=== PATIENT | male | born 1940 | race Caucasian/White ===

== ENCOUNTER 2017-10-18 02:29 | Inpatient (IN) | payer MEDICARE, BC ==
[2017-10-17] MEDS: FLUTICASONE INH SCH (07:49)
[2017-10-17] MEDS: [UNRECOGNIZED DRUG - OTHER] INH SCH (07:49)
[2017-10-17 13:43] LABS: INR 1.01
[~2017-10-18] VITALS: Ht 180.3 cm; Wt 84.8 kg
[2017-10-18] VITALS (10 sets, daily range): BP systolic 122–141; BP diastolic 63–76
[~2017-10-18 02:29] MED LIST: ACE325 PO; ADV250/50 INH; ALFU10TA9 PO; ALL300 PO; BIS10S PR; ENO40I SQ; FINA5TAB64 PO; FISH OIL1 CAP PO; FLUT12HF2 IH; GLUC-198 PO; LISI20TA29 PO; LOR7.5/325 PO; LOSA25TA50 PO; MOM PO; NIA500 PO; OMEP-218 PO; OXY10 PO; SAW160CA24 PO; SENN1TAB9 PO; [UNRECOGNIZED DRUG - CODE] PO; prostate med
[2017-10-18] MEDS ORDERED: CLINDAMYCIN(*) 900 MG/NS 50 ML 50 ML IVPB ONE (07:30)
[2017-10-18] MEDS ORDERED: MIDAZOLAM 2 MG/2 ML VIAL IVP PRN (07:30)
[2017-10-18] MEDS ORDERED: ACETAMINOPHEN 500 MG TAB PO ONE (07:30)
[2017-10-18] MEDS ORDERED: PREGABALIN 75 MG CAPSULE PO ONE (07:30)
[2017-10-18] MEDS ORDERED: BACITRACIN 50000 UNIT/VIAL 100,000 UNIT in NS 0.9% 3000 ML IRRIGATION BAG 3,000 ML IR ONE (07:30)
[2017-10-18] MEDS ORDERED: LIDOCAINE/SOD BICARB 8.4% SYR ID ONE (07:30)
[2017-10-18] MEDS ORDERED: cloNIDine EPIDUR INJ 100MCG/ML 40 MCG, ROPIVACAINE 0.5% 20 ML VIAL 25 ML, EPINEPHrine H... INJ ONE (07:30)
[2017-10-18] MEDS ORDERED: TRANEXAMIC AC 1000 MG/10ML SDV 1,000 MG in DEXTROSE 5% 50 ML BAG 50 ML IV ONE (07:30)
[2017-10-18] MEDS ORDERED: NORMOSOL R SOLN(*) 1000 ML BAG 1,000 ML IV PRN ×2 (07:30→15:10)
--- NOTE | 2017-10-18 07:37 | LEVENE H&P ---
DATE OF ADMISSION: October 18, 2017 IDENTIFICATION/CHIEF COMPLAINT The patient is a 76-year-old gentleman with a chief complaint of right knee pain. HISTORY OF PRESENT ILLNESS The patient has a longstanding history of knee arthritis, progressively painful and debilitating, refractory to conservative care. Surgery is indicated to relieve symptoms after failure of nonoperative measures. PAST MEDICAL HISTORY 1. Notable for hypertension. 2. Asthma. 3. Gout. PAST SURGICAL HISTORY 1. Notable for contralateral knee replacement. 2. Shoulder surgery. 3. Colonoscopy. 4. Foot operation. ALLERGIES SULFA PENICILLIN both which cause hives. CURRENT MEDICATIONS 1. Allopurinol 200 mg p.o. q day. 2. Advair inhaler 2 puffs b.i.d. 3. Lisinopril 20 mg p.o. q day. 4. Prazosin 10 mg q day. 5. Prilosec p.r.n. FAMILY HISTORY Non-contributory. SOCIAL HISTORY Negative for tobacco and alcohol use. REVIEW OF SYSTEMS Notable for borderline diabetes, diet managed. PHYSICAL EXAMINATION GENERAL: This is a well-developed, well-nourished male who appears stated age. HEENT: Normocephalic, atraumatic. Extraocular muscles intact. NECK: Supple, non-tender. LUNGS: Clear to auscultation bilaterally. HEART: Regular rate and rhythm. ABDOMEN: Soft. ORTHOPEDIC EXAMINATION The right knee has an effusion. He has varus deformity. He is stiff in end- range. Gross stability is good. Extensor function is intact. Calves nontender. Neurovascular function intact. RADIOGRAPHS Demonstrate end-stage knee arthritis. ASSESSMENT Right knee end-stage degenerative joint disease, progressively painful and debilitating, refractory to conservative care. PLAN Per patient request, we are going to proceed with total knee arthroplasty. The nature of the procedure, the risks, benefits, the anticipated rehabilitative course were reviewed. Risks include but are not limited to , major medical or anesthetic complication, infection, neurovascular injury, stiffness, scarring, fracture, tendon rupture, instability, implant loosening, migration or failure, blood transfusion, re-tear, progressive arthritis, persistent or recurrent pain or symptoms, need for additional surgery and other unforeseen. He understands and wishes to proceed. A signed permit is placed in the chart. No guarantees are given or implied. TERESA
[2017-10-18] MEDS ORDERED: PROPOFOL EMUL(*) 10MG/ML 20 ML 20 ML ONE (10:29)
[2017-10-18] MEDS ORDERED: DEXAMETHASONE SOD 4 MG/ML VIAL ONE (10:29)
[2017-10-18] MEDS ORDERED: ONDANSETRON 4 MG/2 ML VIAL ONE (10:29)
[2017-10-18] MEDS ORDERED: fentaNYL CITR 100 MCG/2 ML AMP ONE (10:29)
[2017-10-18] MEDS ORDERED: LIDOCAINE MPF 1% 5 ML VIAL ONE (10:29)
[2017-10-18] MEDS ORDERED: KETAMINE HCL 500 MG/10 ML VIAL ONE (10:33)
[2017-10-18] MEDS ORDERED: MIDAZOLAM 2 MG/2 ML VIAL ONE (10:34)
[2017-10-18] MEDS ORDERED: LACTATED RINGER 3000 ML BAG IR ONE (14:04)
[2017-10-18] MEDS ORDERED: NS 0.9% IRRIGATION 1000ML PLCT IR ONE (14:05)
[2017-10-18] MEDS ORDERED: diphenhydrAMINE 50 MG/ML VIAL IVP PRN (15:10)
[2017-10-18] MEDS ORDERED: ACETAMINOPHEN 325 MG TAB PO PRN (15:10)
[2017-10-18] MEDS ORDERED: FLUSH 10 ML SYR IVP PRN (15:10)
[2017-10-18] MEDS ORDERED: PROMETHAZINE 25 MG/ML 1 ML AMP IVP PRN (15:10)
[2017-10-18] MEDS ORDERED: diphenhydrAMINE 25 MG CAP PO PRN (15:10)
[2017-10-18] MEDS ORDERED: BENZOCAINE/MENTHOL 1 EACH LOZG PO PRN (15:10)
[2017-10-18] MEDS ORDERED: DIAZEPAM 5 MG TAB PO PRN (15:10)
[2017-10-18] MEDS ORDERED: BISACODYL 10 MG SUPP PR PRN (15:10)
[2017-10-18] MEDS ORDERED: ZOLPIDEM TARTRATE 5 MG TAB PO PRN (15:10)
--- NOTE | 2017-10-18 15:15 | RADIOLOGY IMAGING REPORT ---
FACILITY: [facility] [place] PATIENT NAME: Tl Mart : 1940 MR: [id number] V: [id number] EXAM DATE: ORDERING PHYSICIAN: JOSÉ MANUEL MCQUEEN TECHNOLOGIST: Location: [facility] [place] Patient: Tl Mart : 1940 Visit/Account:[id number] Date of Sevice: 10/18/2017 KNEE LIMITED RIGHT Indication: Postop Comparison: 10/13/2010 Findings: There are posterior changes from three part TKA. Components are well seated and in good alignment. No abnormalities are noted. IMPRESSION: 1. Normal appearance of postoperative right TKA Report Dictated By: Alonso Barth at 10/18/2017 3:10 PM Report E-Signed By: Alonso Barth at 10/18/2017 3:11 PM WSN:[id number]
--- NOTE | 2017-10-18 18:04 | Hospitalist Consultation ---
History of Present Illness Requesting Physician Dr. Ding Reason for Consult Hypertension History of Present Illness This patient was admitted for knee replacement surgery. It is reported that the surgery went well and was without complication. History Problems: (1) Essential hypertension (2) History of DVT (deep vein thrombosis) (3) Asthma Home Meds Reported Medications Losartan Potassium (LOSARTAN POTASSIUM) 25 Mg Tablet, 25 MG PO QDAY 10/11/17 Sennosides/Docusate Sodium (SENNA LAXATIVE TABLET) 1 Each Tablet, 1 EACH PO PRN 10/11/17 Fluticasone/Salmeterol (ADVAIR HFA 115-21 MCG INHALER) 12 Gm Hfa.aer.ad, 2 PUFF IH BID 10/11/17 Alfuzosin Hcl (ALFUZOSIN HCL) 10 Mg Tab.er.24h, 10 MG PO QDAY 10/11/17 Acetaminophen (Tylenol) 325 Mg Tab, 325 MG PO Q4H PRN, 0 Refills DO NOT TAKE IF USING LORTAB 10/16/10 [prostate med] No Conflict Check, 0 Refills 10/07/10 Omeprazole Magnesium (Prilosec Otc) 20 Mg Tablet.dr, 20 MG PO PRN, 0 Refills 10/07/10 [place]-3 Fatty Acids (Fish Oil) 1 Cap Capsule, 1 CAP PO DAILY, 0 Refills 10/07/10 Glucosa [place] 2KCL/Chondroitin [place] (Glucosamine & Chondroitin Cap) 1 Cap Capsule, 1 CAP PO DAILY, 0 Refills 10/07/10 Allopurinol (Zyloprim) 300 Mg Tab, 300 MG PO QDAY, 0 Refills 10/07/10 Discontinued Reported Medications Lisinopril (LISINOPRIL) 20 Mg Tablet, 20 MG PO QDAY, TAB 10/11/17 Finasteride (Proscar) 5 Mg Tablet, 5 MG PO AB, 0 Refills 10/16/10 Bisacodyl (Dulcolax) 10 Mg Supp, 10 MG AR PRN, 0 Refills INSERT 10/16/10 Oxycodone Hcl (Oxycontin) 10 Mg Tabcr, 10 MG PO Q12H, #20 0 Refills 10/16/10 Enoxaparin Sodium (Lovenox) 40 Mg/0.4 Ml Syr, 40 MG SQ QDAY, #14 0 Refills 10/16/10 Acetaminophen/Hydrocodone (Lortab 7.5/325 Mg) 7.5 Mg/325 Mg Tab, 1 - 2 TAB PO Q4-6H PRN, #40 1 Refill 10/16/10 Al Hydroxide/Mg Hydroxide (Milk Of Magnesia) 30 Ml Susp, 30 ML PO Q8H PRN, 0 Refills 10/16/10 Flaxseed (Flax Seed Oil) 1,000 Mg Capsule, 1000 MG PO DAILY, 0 Refills 10/07/10 [place] (Saw [place]) 160 Mg Capsule, 160 MG PO DAILY, 0 Refills 10/07/10 Niacin (Niaspan) 500 Mg Tab, 500 MG PO QHS, 0 Refills 10/07/10 Salmeterol Xinaf/Fluticasone (Advair 250/50 Diskus) 250 Mcg/50 Mcg Inh, 2 PUFF INH BID, 0 Refills 1 PUFF 10/07/10 Allergies: Coded Allergies: Penicillins (Verified Allergy, Intermediate, HIVES, 10/07/10) Sulfa (Sulfonamide Antibiotics) (Verified Allergy, Intermediate, HIVES, 10/07/10) Hx Smoking: No Exposure to Second Hand Smoke?: No Caffeine Intake: Coffee Caffeine/Cups Per Day: SOMETIMES Hx Alcohol Use: No Hx Substance Use Disorder: No History of IV Drug Use: No Review of Systems All Systems Reviewed/Normal: Yes Exam Vital Signs Vital Signs Date Time Temp Pulse Resp B/P (MAP) Pulse Ox O2 Delivery O2 Flow Rate FiO2 10/18/17 17:16 95 Nasal Cannula 2.0 10/18/17 17:15 53 124/71 (88) 10/18/17 16:20 97.6 20 Neuro: No Gross deficits Eyes: PERRLA Cardiovascular: Regular Rate and Rhythm Respiratory: Clear to Auscultation GI: Abd Soft and Non-Tender Extremities: No Edema Integumentary: No Cyanosis Assessment and Plan Problems: (1) S/P knee replacement Assessment & Plan: He is on Xarelto prophylaxis. (2) Essential hypertension Assessment & Plan: He is on chronic treatment with losartan, which has been ordered with hold parameters. (3) Asthma Assessment & Plan: He is on chronic treatment with Advair. Venous Thromboembolism Antithrombotics Is Pt On Any Antithrombotics?: Yes Exam Sepsis Risk: No Definite Risk CHRISTOPHER STALEY DO Oct 18, 2017 18:04
[2017-10-18] MEDS: CLINDAMYCIN(*) 900 MG/NS 50 ML 50 ML IVPB SCH (21:08)
[2017-10-18] MEDS: IBUPROFEN 800 MG TAB PO SCH (21:08)
--- NOTE | 2017-10-18 21:12 | OPERATIVE REPORT 1 ---
EVENT DATE: October 18, 2017 SURGEON: Omar Ding MD ANESTHESIOLOGIST: Curtis Jackson MD ANESTHESIA: General plus spinal. CONTINUOUS MINING OPERATOR: TRAN Iglesisa PREOPERATIVE DIAGNOSIS Right knee degenerative joint disease. POSTOPERATIVE DIAGNOSIS Right knee degenerative joint disease. PROCEDURE PERFORMED Right total knee arthroplasty. FINAL ESTIMATED BLOOD LOSS Minimal. DRAINS None. SPECIMENS None. COMPLICATIONS None apparent. TOURNIQUET TIME 46 minutes IMPLANTS USED phorus Triathlon knee system with 5 right PS femur, 6 standard tibial baseplate, a 36 mm universal, cemented, all-polyethylene patellar button, and a 13 mm PS tibial tray liner. Polyethylene is X3. INDICATIONS Tl is a 77-year-old gentleman with intractable pain and disability related to end-stage knee arthritis. Surgery is indicated to relieve symptoms after failure of nonoperative measures. DESCRIPTION OF PROCEDURE Patient is taken to the operating room and placed supine on the operating table. Spinal block is administered by the anesthesiologist. General anesthesia is induced. Antibiotics are administered IV. The right lower extremity is prepped and draped in the usual sterile fashion for knee arthroplasty. Limb was exsanguinated with an Esmarch bandage. Tourniquet is inflated to 250 mmHg. A midline longitudinal incision is made and carried down through the skin and subcutaneous tissue to the deep fascia. Full-thickness flaps are developed far enough medially to allow medial parapatellar arthrotomy be performed. Patella is everted. Knee is brought into the flexed position. Fat pad, anterior horns of the menisci, and the cruciate ligaments are debrided. A subperiosteal medial released is begun in a gentle titrated fashion to start to balance the knee. A step drill is used to enter the distal femur. A 10-inch long alignment guide is used to engage the isthmus. Cut is set for 5 degrees of valgus relative to the anatomic axis. The 10 mm resection block is applied, pinned, and cuts made with an oscillating saw. AP sizing guide is applied to the distal femoral cut. Size 5 is optimal without risk of notching. Four-in-one cutting block is applied. Anterior, posterior, posterior chamfer, and anterior chamfer cuts are made respectively. PS block is applied and centered. Medial and lateral bone is removed through the box. Trial femur has nice [id number] fit. Attention is turned to tibial preparation. The extramedullary guide is applied, positioned for varus, valgus, posterior slope, and rotation. This is set to resect 9 mm from the relatively intact lateral tibial plateau. It is dropped down a couple millimeters ensure an adequate cut. Block is pinned. Extramedullary alignment check is made and cuts made with an oscillating saw. Peripheral osteophytes are removed, and posterior condylar bone is removed. Gaps are balanced and symmetric at this point with no additional releases required. The size 6 tibial baseplate provides optimum bony coverage without soft tissue overhang. This is inserted along with a trial femur and a trial liner. Knee is brought to extension. Patella is taken from a starting thickness of 24 mm to a residual of 15 with a patellar clamp and oscillating saw. The 36 provides optimum bony coverage without soft tissue overhang. Lug holes are drilled. Patella tracks nicely with the no-touch technique. Final tibial preparation consists of assuring appropriate rotational and translational positioning of the component. The boss is reamed, and the fin is punched. Surfaces are lavaged. Mixed methacrylate is made, and the components are cemented in a single stage. Once the cement is fully polymerized, tourniquet is deflated, and hemostasis is assured. The wound is copiously lavaged to remove all loose debris. The 13 PS tibial tray liner fills up the gap ideally, allowing the knee to drop to full extension without hyperextension and providing optimal soft tissue tension and stability. The tray is lavaged and dried. The actual liner is locked into the baseplate. Joint is reduced. Arthrotomy is closed in flexion with #2 Ethibond, subcutaneous tissue with 3-0 Vicryl, skin with surgical salvador. Xeroform and 4 x 4's applied as a dry, sterile dressing and compression wrap. The patient was awakened from anesthesia and taken to the recovery room in stable condition having tolerated the procedure well. PLAN Plan is for standard TKA rehab protocol. [facility]
[2017-10-18] MEDS: APAP/HYDROCODONE 325/7.5 TAB PO PRN (23:14)
[2017-10-19] VITALS: BP 112/55
[2017-10-19 03:24] VITALS: BP 112/57
[2017-10-19] MEDS: CLINDAMYCIN(*) 900 MG/NS 50 ML 50 ML IVPB SCH ×2 (05:19→13:20)
[2017-10-19 07:33] VITALS: BP 118/63
[2017-10-19 08:56] VITALS: Ht 180.3 cm; Wt 84.8 kg
[2017-10-19] MEDS: ALFUZOSIN HCL 10 MG TABCR PO SCH (08:59)
[2017-10-19] MEDS: IBUPROFEN 800 MG TAB PO SCH ×3 (08:59→21:08)
[2017-10-19] MEDS: RIVAROXABAN 10 MG TAB PO SCH (08:59)
[2017-10-19] MEDS: ALLOPURINOL 300 MG TAB PO SCH (08:59)
[2017-10-19] MEDS: APAP/HYDROCODONE 325/7.5 TAB PO PRN ×2 (08:59→16:48)
[2017-10-19] MEDS: LOSARTAN POTASSIUM 50 MG TAB PO SCH (09:00)
[2017-10-19] MEDS ORDERED: ASPIRIN 325 MG TAB PO SCH (09:00)
--- NOTE | 2017-10-19 10:53 | Hospitalist Progress Note ---
Subjective Progress Notes Subjective He has no complaints this morning. He had no acute events overnight. Patient Complains of: Cardiovascular: No: Chest Pain Respiratory: No: Shortness of Breath Physical Exam Vital Signs Date Time Temp Pulse Resp B/P (MAP) Pulse Ox O2 Delivery O2 Flow Rate FiO2 10/19/17 07:33 93 Nasal Cannula 0.5 10/19/17 07:33 97.8 70 16 118/63 (81) Intake and Output 10/19/17 06:59 Intake Total 3900 ml Balance 3900 ml Intake Oral 600 ml IV Total 1700 ml Other 1600 ml # Voids 2 General Appearance: Alert, Awake, No Acute Distress, Afebrile Neuro: No Gross deficits Cardiovascular: Regular Rate and Rhythm Respiratory: No Respiratory Distress, Clear to Auscultation GI: Soft and Non-Tender Psych: Alert & Oriented X3, Appropriate Mood & Affect Assessment and Plan Problems: (1) S/P knee replacement Assessment & Plan: He is on Xarelto prophylaxis. (2) Essential hypertension Status: Chronic Assessment & Plan: He is on chronic treatment with losartan, which has been ordered with hold parameters. (3) Asthma Status: Chronic Assessment & Plan: He is on chronic treatment with Advair. Exam Sepsis Risk: No Definite Risk STEFFANY REBOLLEDO MICROSTRATEGY BI DEVELOPER Oct 19, 2017 10:53
[2017-10-19 11:08] VITALS: BP 144/72
[2017-10-19 15:06] VITALS: BP 117/59
[2017-10-19] MEDS: MAGNESIUM HYDROXIDE* 30ML UDCP PO PRN (16:48)
[2017-10-19] MEDS: [UNRECOGNIZED DRUG - OTHER] INH SCH (16:54)
[2017-10-19] MEDS: FLUTICASONE INH SCH (16:54)
[2017-10-19 18:33] VITALS: BP 128/59
[2017-10-20] MEDS: APAP/HYDROCODONE 325/7.5 TAB PO PRN (00:55)
[2017-10-20 00:59] VITALS: BP 131/66
[2017-10-20] MEDS: MAGNESIUM HYDROXIDE* 30ML UDCP PO PRN (00:59)
[2017-10-20 04:52] VITALS: BP 119/56
[2017-10-20] MEDS: FLUTICASONE INH SCH (06:11)
[2017-10-20] MEDS: [UNRECOGNIZED DRUG - OTHER] INH SCH (06:11)
[2017-10-20 07:22] VITALS: BP 118/53
[2017-10-20] MEDS ORDERED: HYDR-4308 PO (08:39)
[2017-10-20] MEDS: LOSARTAN POTASSIUM 50 MG TAB PO SCH (09:00)
[2017-10-20] MEDS: IBUPROFEN 800 MG TAB PO SCH (09:04)
[2017-10-20] MEDS: RIVAROXABAN 10 MG TAB PO SCH (09:04)
[2017-10-20] MEDS: ALFUZOSIN HCL 10 MG TABCR PO SCH (09:04)
[2017-10-20] MEDS: ALLOPURINOL 300 MG TAB PO SCH (09:04)
[2017-10-20] MEDS ORDERED: RIVA10TA PO (09:22)
--- NOTE | 2017-10-20 12:10 | Hospitalist Progress Note ---
Subjective Progress Notes Subjective He has no complaints this morning. He had no acute events overnight. He states he would like to go home today. Patient Complains of: Cardiovascular: No: Chest Pain Respiratory: No: Shortness of Breath Physical Exam Vital Signs Date Time Temp Pulse Resp B/P (MAP) Pulse Ox O2 Delivery O2 Flow Rate FiO2 10/20/17 07:46 82 10/20/17 07:22 Nasal Cannula 1.0 10/20/17 07:22 98.0 73 18 118/53 (74) Intake and Output 10/20/17 06:59 Intake Total 1538 ml Balance 1538 ml Intake Oral 1480 ml IV Total 58 ml # Voids 4 General Appearance: Alert, Awake, No Acute Distress, Afebrile Neuro: No Gross deficits Cardiovascular: Regular Rate and Rhythm Respiratory: No Respiratory Distress, Clear to Auscultation GI: Soft and Non-Tender Psych: Alert & Oriented X3, Appropriate Mood & Affect Assessment and Plan Problems: (1) S/P knee replacement Assessment & Plan: He is on Xarelto prophylaxis. (2) Essential hypertension Status: Chronic Assessment & Plan: He is on chronic treatment with losartan, which has been ordered with hold parameters. (3) Asthma Status: Chronic Assessment & Plan: He is on chronic treatment with Advair. Exam Sepsis Risk: No Definite Risk STEFFANY REBOLLEDO Oct 20, 2017 12:10
== END 2017-10-20 10:50 | disposition home or self-care (01) | DRG 470 ==
LOC: OR 02:29 → MED 16:15
PROVIDERS: ADMIT Orthopaedic Surgery; ATTEND Orthopaedic Surgery
PROC: 0SRC0J9 Replacement of Right Knee Joint with Synthetic Substitute, Cemented, Open Approach (ICD-10-PCS; principal; 2017-10-18 12:39)
DX: M17.11 Unilateral primary osteoarthritis, right knee (principal); I10 Essential (primary) hypertension; K21.9 Gastro-esophageal reflux disease without esophagitis; N40.0 Benign prostatic hyperplasia without lower urinary tract symptoms; Z96.652 Presence of left artificial knee joint; J45.909 Unspecified asthma, uncomplicated; M1A.9XX0 Chronic gout, unspecified, without tophus (tophi); M21.10 Varus deformity, not elsewhere classified, unspecified site; Z88.0 Allergy status to penicillin
CPT/HCPCS: 36415; 36416; 82948; 85610; 86850; 86900; 86901; 94640; 97161; C1713; C1776; J0171; J0735; J1100; J1885; J2001; J2250; J2405; J2704; J2795; J3010; J3490; J7050; J7060